=== PATIENT | female | born 1940 | race Caucasian/White ===

== ENCOUNTER 2016-07-26 17:59 | Observation (INO) ==
--- NOTE | 2016-07-26 19:25 | Emergency Department Note ---
IRa Emily, am scribing for, and in the presence of, Shante Serrano DO 19:23. IZach Debra, DO, personally performed the services described in this documentation, ascribed by Sofya Knapp in my presence, and it is both accurate and complete 925 . Arrival - Arrival Chief Complaint: Nausea/Vomiting/Diarrhea Stated Complaint: DIARRHEA Mode of Arrival: Stretcher Limitations: No Limitations Source: Patient - History of Present Illness HPI Narrative: Pt is a 75 y/o female who came to ED by EMS with c/o excessive diarrhea that started midnight this morning and continued throughout today. Pt reports having gross amounts of diarrhea and in ED having chills and mild abdomen pain. Pt states having two tumors, one in right abdominal wall and the other in the liver. She had a chemo tx on Thursday, July 23 and angio plasty on July 24. PSHx of multiple abdominal surgeries, in which cholecystectomy, partial hepatectomy, CA in a bowel duct which was removed and connected directly to intestines, but no hysterectomy. Onset (ago): day(s) Consistency: constant Severity: moderate Severity scale (1-10): 5 Quality: other Allergies/Adverse Reactions: Allergies Allergy/AdvReac Type Severity Reaction Status Date / Time aprepitant [From Emend] Allergy Intermediate RASH Verified 10/24/14 17:03 fosaprepitant [From Emend] Allergy Intermediate RASH Verified 10/24/14 17:03 Penicillins Allergy Intermediate RASH Verified 10/24/14 17:03 vancomycin Allergy Intermediate RASH Verified 10/24/14 17:03 Tamoxifen Allergy Verified 07/16/16 09:56 Home Medications: Home Medications Medication Instructions Recorded Confirmed Type Pantoprazole Tab [Protonix Tab] 1 tablet PO DAILY PRN 07/19/14 07/26/16 History Atenolol 25 mg PO DAILY 08/28/14 07/26/16 History Clorazepate [Tranxene] 3.75 mg PO BID PRN 07/24/16 07/26/16 History HYDROcodone/ACETAMIN 7.5-325 1 tablet PO Q4H 07/26/16 07/26/16 History [Roper 7.5-325] Loperamide Cap [Imodium Cap] 2 mg PO DAILY 07/26/16 07/26/16 History Promethazine Tab [Phenergan Tab] 25 mg PO Q4H 07/26/16 07/26/16 History Review of System - Review of System 12 point system: reviewed and no additional remarkable complaints except as stated - Review of System Constitutional: Present: chills (in waves). Absent: fever Respiratory: Absent: respiratory distress Cardiovascular: Absent: chest pain Gastrointestinal: Present: abdominal pain (mildly ), diarrhea (grossly ). Absent: nausea, vomiting, constipation Musculoskeletal: Absent: arm pain, back pain, leg pain, neck pain Skin: Absent: rash Neurological: Absent: headache Psychiatric: Absent: anxiety Medical,Surgical,& Family Hx - Medical History Cardio: History of: Hypertension Neurology: No history of: Seizures HEENT: History of: Eye Problem (Glasses), Dental Problems (Missing/Caps) Respiratory: No history of: Pneumonia (No Pneum Vac), Respiratory Problems (No Flu Vac 2015) Genitourinary: No history of: Recurring Urinary Tract Infections Gastrointestinal: History of: GERD, Liver Problems (resection of liver partial hepatomy), Gastrointestinal Cancer (Bile Duct Cancer-Chemo), GI Problems ([facility]; New Rt Lateral abdominal wall-Sched for Bx RAD-Questionable METS) Hematology: History of: Anemia No history of: Blood Transfusion Reaction Reproductive: History of: Breast Cancer (2004-Radiation) Other: History of: Cancer (Bile Duct Ca-Mets Liver) No history of: Anesthesia Reactions - Surgical History Thoracic Surgeries: Patient denies;: Organ Transplant HEENT Surgeries: Patient denies: Eye Surgery Abdominal Surgeries: Surgical HX of: Abdominal Surgery (bile duct cancer; Partial Colectomy), Cholecystectomy, EGD Reproductive Surgeries: Surgical HX of;: Breast Surgery (Lumpectomy Rt) - Family History Family History: Reports;: Family Cancer (Mother & Sister:Brain tumor; Brother (2 ): Prostate), Family Heart Disease (Father: Heart attack), Family Hypertension ( Mother, Aunt), Family Stroke (Aunt) - Social History Smoking Status: Never smoker Functional capacity: independent ambulation Exam Vital Signs: Vital Signs Temperature 96.9 F L 07/26/16 18:17 Pulse Rate 95 H 07/26/16 18:49 Respiratory Rate 18 07/26/16 18:49 Blood Pressure 164/104 07/26/16 18:49 O2 Sat by Pulse Oximetry 98 07/26/16 18:49 - General General appearance: alert, in no apparent distress - Head Head exam: Present: atraumatic, normocephalic - Eye Eye exam: Present: PERRL, EOMI - ENT ENT exam: Present: mucous membranes dry. Absent: mucous membranes moist - Neck Neck exam: Present: full ROM. Absent: tenderness - Chest Chest inspection: Present: symmetric chest wall rise. Absent: tenderness - Respiratory Respiratory exam: Present: normal lung sounds bilaterally. Absent: respiratory distress - Cardiovascular Cardiovascular exam: Present: regular rate, normal rhythm, normal heart sounds - Abdominal Exam Abdominal exam: Present: soft, normal bowel sounds. Absent: distention, tenderness, guarding, rebound - Extremities Exam Extremities exam: Present: full ROM. Absent: tenderness, pedal edema - Neurological Exam Neurological exam: Present: alert, oriented X3, CN II-XII intact. Absent: motor sensory deficit - Psychiatric Psychiatric exam: Present: normal affect, normal mood - Skin Skin exam: Present: warm, dry Course Course Narrative: spoke with Dr Kitchen who will admit patient to obs Results - Labs CBC & BMP: 07/26/16 19:17 07/26/16 19:17 Lab Results: I have reviewed the patients labs Labs: Laboratory Tests 07/26/16 07/26/16 19:17 19:17 WBC 3.8 L D Lymph # (Auto) 1.1 L [place] # (Auto) 0.1 L Glucose 128 H Alkaline Phosphatase 123 H Albumin/Globulin Ratio 1.0 L Disposition Clinical Impression: Drug-induced nausea and vomiting Case discussed with: patient, patient's family Disposition: Still a Patient Condition: Stable Time of Disposition: 20:38
[2016-07-26] MEDS ORDERED: ONDANSETRON 4 MG/2 ML VIAL IV STA (19:26)
[2016-07-26] MEDS ORDERED: SODIUM CHLORIDE 0.9% 1,000 ML IV STA (19:26)
[2016-07-26 19:41] LABS: Basophils % 0.5 % (0.0-0.8); Eosinophils # 0.1 10*3/uL (0.0-0.87); Eosinophils % 2.6 % (0.00-10.9); Hematocrit 41.9 VOL% (35.7-47.0); Hemoglobin 14.1 GM/DL (12.0-16.0); Immature Granulocytes % 0.8 %; Immature Granulocytes Absolute 0.03 #; Lymphocytes # 1.1 10*3/uL (1.4-4.0); Lymphocytes % 28.1 % (21.3-54.2); Mean Corpuscular HGB Conc 33.7 GM/DL (32-36); Mean Corpuscular Hemoglobin 30 PG (27-34); Mean Corpuscular Volume 87.7 FL (87-102); Mean Platelet Volume 10.2 FL (9.6-12.0); Monocytes # 0.1 10*3/uL (0.11-0.8); Monocytes % 1.8 % (1.7-12.7); Neutrophils # 2.5 10*3/uL (1.4-7.4); Neutrophils % 66.2 % (38.7-73.9); Platelet Count 156 T/CUMM (130-400); Red Blood Count 4.78 MC/CUMM (3.8-5.5); Red Cell Distribution Width 12.6 % (9.3-17.3); White Blood Count 3.8 T/CUMM (4-12)
[2016-07-26 19:52] LABS: Albumin 3.4 G/DL (3.4-5.0); Calcium 8.6 MG/DL (8.5-10.1); Osmolality,Calculated 282.4 MOS/KG (273-304); Potassium 4.1 MMOL/L (3.5-5.1); Total Protein 6.6 G/DL (6.4-8.3)
[2016-07-26] MEDS ORDERED: ONDANSETRON 4 MG/2 ML VIAL ONE (19:53)
[2016-07-26] MEDS ORDERED: diphenhydrAMINE CAP 25 MG CAPSULE PO PRN (20:40)
[2016-07-26] MEDS ORDERED: chlorproMAZINE INJ 50 MG in SODIUM CHLORIDE 0.9% 100 ML IV PRN (20:40)
[2016-07-26] MEDS ORDERED: TEMAZEPAM 7.5 MG CAPSULE PO PRN (20:40)
[2016-07-26] MEDS ORDERED: ACETAMINOPHEN 325 MG TABLET PO PRN (20:40)
[2016-07-26] MEDS ORDERED: LACTULOSE 20 GM/30 ML UDCUP PO PRN (20:40)
[2016-07-26] MEDS ORDERED: PROMETHAZINE INJ 25 MG in SODIUM CHLORIDE 0.9% 50 ML IV PRN (20:40)
[2016-07-26] MEDS ORDERED: LOPERAMIDE 2 MG CAPSULE PO PRN ×2 (20:40)
[2016-07-26] MEDS ORDERED: chlorproMAZINE INJ 25 MG in SODIUM CHLORIDE 0.9% 100 ML IV PRN (20:40)
[2016-07-26] MEDS ORDERED: MAGNESIUM HYDROXIDE SUSP 30 ML UDCUP PO PRN (20:40)
[2016-07-26] MEDS ORDERED: MYLANTA/LIDO VISC 2:1 300 ML BOTTLE SWISH/SPIT PRN (20:40)
[2016-07-26] MEDS ORDERED: chlorproMAZINE 25 MG TABLET PO PRN (20:40)
[2016-07-26] MEDS ORDERED: guaiFENesin 200 MG/10 ML UDCUP PO PRN (20:40)
[2016-07-26] MEDS ORDERED: BENZTROPINE 2 MG/2 ML AMP IV PRN (20:40)
[2016-07-26] MEDS ORDERED: ALPRAZolam 0.25 MG TABLET PO PRN (20:40)
[2016-07-26] MEDS ORDERED: ONDANSETRON 4 MG/2 ML VIAL IV PRN (20:40)
[2016-07-26] MEDS ORDERED: traMADol 50 MG TABLET PO PRN (20:40)
[2016-07-26] MEDS ORDERED: ALUMINUM/MAGNES/SIMETH MAX STR 30 ML UDCUP PO PRN (20:40)
[2016-07-26] MEDS ORDERED: MYLANTA/LIDO VISC 2:1 300 ML BOTTLE SWISH/SWAL PRN (20:40)
[2016-07-26 21:12] LABS: Apearance,Urine CLEAR (Clear); Bacteria,Urine Occasional /HPF (Few); Bilirubin,Urine Negative (Negative); Blood, Urine Negative (Negative); Glucose,Urine (UA) Negative (Negative); Ketones,Urine Negative (Negative); Nitrite,Urine Negative (Negative); Protein,Urine Negative; RBC,Urine <1 /HPF (0-4); Urine Color Straw (Yellow); Urine Specific Gravity 1.004 (1.001-1.035); Urine Urobilinogen < 2.0 EU/DL (0.2-1.0); WBC,Urine 2 /HPF (0-6)
[2016-07-26 21:17] LABS: Uric Acid 5.4 MG/DL (2.6-6.0)
[2016-07-26] MEDS: SODIUM CHLORIDE 0.9% 1,000 ML IV SCH (22:40)
[2016-07-27] MEDS: SODIUM CHLORIDE 0.9% 1,000 ML IV SCH ×3 (05:28→21:42)
--- NOTE | 2016-07-27 09:21 | Oncology History&Physical ---
Assessment and Plan - Time spent with patient Time spent with patient: Greater than 30 minutes (1) Diarrhea Status: Acute Assessment and plan: We will continue with IV fluids. We will tested for C. difficile. I anticipate that she will likely be ready for discharge tomorrow morning. I will go ahead and place her on p.o. Cipro for her gram-negative rods in her urine. 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 Arzate is a 75 year old female with what sounds like a history of a biliary tumor who underwent TACE this past week per her description and was admitted to the ER yesterday for dehydration and severe diarrhea. She had called me earlier today complaining of nausea and vomiting but had Phenergan suppositories at home and was going to try these. This morning she states she does not have any nausea and vomiting but still has loose stool. Her lab work does not show any significant abnormalities. Her urine was fairly clean on evaluation but her cultures are growing out gram-negative rods. She has not had any fevers. She appears to be doing fairly well this morning. Home Medications Medication Instructions Recorded Confirmed Type Pantoprazole Tab [Protonix Tab] 1 tablet PO DAILY PRN 07/19/14 07/26/16 History Atenolol 25 mg PO DAILY 08/28/14 07/26/16 History Clorazepate [Tranxene] 3.75 mg PO BID PRN 07/24/16 07/26/16 History HYDROcodone/ACETAMIN 7.5-325 1 tablet PO Q4H 07/26/16 07/26/16 History [Lorain 7.5-325] Loperamide Cap [Imodium Cap] 2 mg PO DAILY 07/26/16 07/26/16 History Promethazine Tab [Phenergan Tab] 25 mg PO Q4H 07/26/16 07/26/16 History Allergies Allergy/AdvReac Type Severity Reaction Status Date / Time aprepitant [From Emend] Allergy Intermediate RASH Verified 10/24/14 17:03 fosaprepitant [From Emend] Allergy Intermediate RASH Verified 10/24/14 17:03 Penicillins Allergy Intermediate RASH Verified 10/24/14 17:03 vancomycin Allergy Intermediate RASH Verified 10/24/14 17:03 Tamoxifen Allergy Verified 07/16/16 09:56 Medical,Surgical,& Family Hx - Medical History Cardio: History of: Hypertension Neurology: No history of: Seizures HEENT: History of: Eye Problem (Glasses), Dental Problems (Missing/Caps) Respiratory: No history of: Pneumonia (No Pneum Vac), Respiratory Problems (No Flu Vac 2015) Genitourinary: No history of: Recurring Urinary Tract Infections Gastrointestinal: History of: GERD, Liver Problems (resection of liver partial hepatomy), Gastrointestinal Cancer (Bile Duct Cancer-Chemo), GI Problems ([facility]; New Rt Lateral abdominal wall-Sched for Bx RAD-Questionable METS) Hematology: History of: Anemia No history of: Blood Transfusion Reaction Reproductive: History of: Breast Cancer (2004-Radiation) Other: History of: Cancer (Bile Duct Ca-Mets Liver) No history of: Anesthesia Reactions - Surgical History Thoracic Surgeries: Patient denies;: Organ Transplant HEENT Surgeries: Patient denies: Eye Surgery Abdominal Surgeries: Surgical HX of: Abdominal Surgery (bile duct cancer; Partial Colectomy), Cholecystectomy, EGD Reproductive Surgeries: Surgical HX of;: Breast Surgery (Lumpectomy Rt) - Family History Family History: Reports;: Family Cancer (Mother & Sister:Brain tumor; Brother (2 ): Prostate), Family Heart Disease (Father: Heart attack), Family Hypertension ( Mother, Aunt), Family Stroke (Aunt) - Social History Smoking Status: Never smoker Frequency of Alcohol Use: None Type of Drug Use: None 12 point system: reviewed and no additional remarkable complaints except as stated - Constitutional Constitutional: Present: fatigue. Absent: chills, fever(s) Exam - Constitutional Vitals: Period Temp Pulse Resp BP Sys/Lowry Pulse Ox Last 24 Hr 96.9 F-98.2 F 73-95 18-20 109-179/60-109 95-100 General appearance: normal weight, mild distress - Head Head Exam: Present: normocephalic, atraumatic - Eye Eye Exam: Present: EOMI Pupils: Present: PERRL - ENT ENT exam: Present: normal exam, normal oropharynx - Neck Neck exam: Absent: lymphadenopathy, thyromegaly - Respiratory Respiratory exam: Present: CTAB. Absent: wheezes - Cardiovascular Cardiovascular exam: Present: RRR. Absent: JVD, systolic murmur - GI/Abdominal GI/Abdominal exam: Present: soft. Absent: ascites, distended, mass - Neurological Exam Neurological exam: Present: alert, oriented X3 - Psychiatric Psychiatric exam: Present: normal affect, normal mood - Skin Skin exam: Present: warm, dry Results - Labs CBC & BMP: 07/26/16 19:17 07/26/16 19:17 Lab Results: I have reviewed the past 24 hour labs
[2016-07-27] MEDS: CIPROFLOXACIN 500 MG TABLET PO SCH ×2 (09:44→20:14)
[2016-07-28] MEDS: SODIUM CHLORIDE 0.9% 1,000 ML IV SCH (05:39)
[2016-07-28 06:09] LABS: Basophils % 1.6 % (0.0-0.8); Eosinophils # 0.1 10*3/uL (0.0-0.87); Eosinophils % 5.7 % (0.00-10.9); Hematocrit 33.2 VOL% (35.7-47.0); Hemoglobin 11.1 GM/DL (12.0-16.0); Immature Granulocytes Absolute 0.02 #; Lymphocytes # 1.1 10*3/uL (1.4-4.0); Lymphocytes % 54.9 % (21.3-54.2); Mean Corpuscular HGB Conc 33.4 GM/DL (32-36); Mean Corpuscular Hemoglobin 30 PG (27-34); Mean Corpuscular Volume 89.2 FL (87-102); Mean Platelet Volume 10.5 FL (9.6-12.0); Monocytes # 0.1 10*3/uL (0.11-0.8); Monocytes % 4.1 % (1.7-12.7); Neutrophils # 0.6 10*3/uL (1.4-7.4); Neutrophils % 32.7 % (38.7-73.9); Platelet Count 101 T/CUMM (130-400); Red Blood Count 3.72 MC/CUMM (3.8-5.5); Red Cell Distribution Width 12.4 % (9.3-17.3); White Blood Count 1.9 T/CUMM (4-12)
[2016-07-28 06:56] LABS: Band Neutrophils 2 % (0-10); Eosinophils 5 % (0-10); Giant Platelets Few; Hypochromasia Slight; Lymphocytes 61 % (20-55); Microcytosis Slight; Platelet Estimate Decreased; Segmented Neutrophils 30 % (50-85); Total Cells Counted 100
[2016-07-28 08:23] VITALS: BP 147/73
[2016-07-28] MEDS: CIPROFLOXACIN 500 MG TABLET PO SCH (08:49)
--- NOTE | 2016-07-28 08:52 | Oncology Progress Note ---
Oncology Subjective PN Interval history: Patient with recurrent cholangiocarcinoma with prior surgical resection [facility] believe to be around late 2014. She did have a positive margin. Over the last several weeks we have been following liver lesions as well as to mesenteric lesions. She recently agreed to begin chemotherapy and I have placed her on weekly paclitaxel. She has had 2 treatments. Also on 2 days prior to admission she underwent chemoembolization performed here in [place]. She was admitted primarily for diarrhea. This has abated and she appears nontoxic today. She is able for discharge home. Prescriptions provided include Brenton 7.5 #60 as needed pain. She is neutropenic and chemotherapy is discontinued for this week with next evaluation at my office on ThursdayAugust 06. Exam - Constitutional Vitals: Period Temp Pulse Resp BP Sys/Lowry Pulse Ox Last 24 Hr 97.3 F-98.7 F 74-107 17-20 137-163/63-82 95-97 Results - Labs CBC & BMP: 07/28/16 05:49 07/26/16 19:17
--- NOTE | 2016-07-28 09:29 | Event Note ---
Came by to see Mrs. Arzate as she was admitted over the weekend for intractable diarrhea. She was discharged Thursday morning following bland particle/coil embolization of the mesenteric tumors within the right upper quadrant (known biopsy-proven recurrent colon carcinoma). At the time of discharge, she had no complaints. The transarterial embolization procedure was performed , 07/24/2016. She does not complain of any significant right upper quadrant pain since discharge. Her abdomen is nontender on exam. She has no chest pain or shortness of breath today. Oncology notes that she is neutropenic and also that she has a UTI (possibly related to Cates catheter placement during procedure?), which they are treating. Plan is to see her back in approximately 6 weeks with a repeat CT of the abdomen liver mass protocol to assess for response to embolization with hopes of planned cryoablation of the mesenteric deposits.
== END 2016-07-28 10:22 | disposition home or self-care (01) ==
LOC: EDUNIT# → N.ED 17:59 → N.EDINP 17:59 → N.4E 21:26
PROVIDERS: ADMIT Specialist; ATTEND Specialist

== ENCOUNTER 2017-06-15 10:36 | Inpatient (IN) ==
[2017-06-15] MEDS ORDERED: DEXAMETHASONE 10 MG/1 ML VIAL IV SCH (11:30)
[2017-06-15] MEDS ORDERED: OXALIPLATIN IV ONE (11:30)
[2017-06-15] MEDS ORDERED: LEUCOVORIN INJ 700 MG in DEXTROSE 5% 250 ML IV ONE (11:30)
[2017-06-15] MEDS ORDERED: DEXTROSE 5% IV ONE (11:30)
[2017-06-15] MEDS ORDERED: PALONOSETRON 0.25 MG/5 ML VIAL IV SCH (11:30)
[2017-06-15] MEDS ORDERED: FLUOROURACIL IV ONE (11:30)
[2017-06-15] MEDS: FLUOROURACIL 2,000 MG in SODIUM CHLORIDE 0.9% 1,000 ML IV SCH (15:39)
[2017-06-15] MEDS ORDERED: PROCHLORPERAZINE 10 MG TABLET PO PRN (16:08)
[2017-06-15] MEDS: CLORAZEPATE 3.75 MG TABLET PO SCH (20:18)
[2017-06-15] MEDS: GABAPENTIN 400 MG CAPSULE PO SCH (20:18)
[2017-06-15] MEDS ORDERED: guaiFENesin 200 MG/10 ML UDCUP PO PRN (21:53)
[2017-06-15] MEDS ORDERED: MYLANTA/LIDO VISC 2:1 300 ML BOTTLE SWISH/SPIT PRN (21:53)
[2017-06-15] MEDS ORDERED: ALPRAZolam 0.25 MG TABLET PO PRN (21:53)
[2017-06-15] MEDS ORDERED: PROMETHAZINE INJ 25 MG in SODIUM CHLORIDE 0.9% 50 ML IV PRN (21:53)
[2017-06-15] MEDS ORDERED: BENZTROPINE 2 MG/2 ML AMP IV PRN (21:53)
[2017-06-15] MEDS ORDERED: traMADol 50 MG TABLET PO PRN (21:53)
[2017-06-15] MEDS ORDERED: chlorproMAZINE INJ 50 MG in SODIUM CHLORIDE 0.9% 100 ML IV PRN (21:53)
[2017-06-15] MEDS ORDERED: MYLANTA/LIDO VISC 2:1 300 ML BOTTLE SWISH/SWAL PRN (21:53)
[2017-06-15] MEDS ORDERED: ONDANSETRON 4 MG/2 ML VIAL IV PRN (21:53)
[2017-06-15] MEDS ORDERED: diphenhydrAMINE CAP 25 MG CAPSULE PO PRN (21:53)
[2017-06-15] MEDS ORDERED: ALUMINUM/MAGNES/SIMETH MAX STR 30 ML UDCUP PO PRN (21:53)
[2017-06-15] MEDS ORDERED: ACETAMINOPHEN 325 MG TABLET PO PRN (21:53)
[2017-06-15] MEDS ORDERED: chlorproMAZINE INJ 25 MG in SODIUM CHLORIDE 0.9% 100 ML IV PRN (21:53)
[2017-06-15] MEDS ORDERED: MAGNESIUM HYDROXIDE SUSP 30 ML UDCUP PO PRN (21:53)
[2017-06-15] MEDS ORDERED: LOPERAMIDE 2 MG CAPSULE PO PRN ×2 (21:53)
[2017-06-15] MEDS: TEMAZEPAM 7.5 MG CAPSULE PO PRN ×2 (22:16→23:49)
[2017-06-16] MEDS: GABAPENTIN 400 MG CAPSULE PO SCH ×3 (06:44→20:47)
[2017-06-16] MEDS: CLORAZEPATE 3.75 MG TABLET PO SCH ×2 (11:43→20:47)
[2017-06-16] MEDS: ATENOLOL 25 MG TABLET PO SCH (11:43)
[2017-06-16] MEDS: PANTOPRAZOLE 40 MG TABLET PO SCH (11:43)
[2017-06-16] MEDS: FLUOROURACIL 2,000 MG in SODIUM CHLORIDE 0.9% 1,000 ML IV SCH (20:57)
[2017-06-17] MEDS: CLORAZEPATE 3.75 MG TABLET PO SCH (08:03)
[2017-06-17] MEDS: GABAPENTIN 400 MG CAPSULE PO SCH (08:03)
[2017-06-17] MEDS: ATENOLOL 25 MG TABLET PO SCH (08:05)
[2017-06-17] MEDS: PANTOPRAZOLE 40 MG TABLET PO SCH (08:05)
[2017-06-17] MEDS: LACTULOSE 20 GM/30 ML UDCUP PO PRN ×2 (08:10→08:11)
[2017-06-17] MEDS ORDERED: HEPARIN LOCK FLUSH 500 UNIT/5 ML SYRINGE IV PRN (09:42)
[2017-06-17 11:06] VITALS: BP 141/81
== END 2017-06-17 14:30 | disposition home or self-care (01) | DRG 847 ==
LOC: N.4E 10:43
PROVIDERS: ADMIT Specialist; ATTEND Specialist

== ENCOUNTER 2017-12-11 15:24 | Inpatient (IN) ==
[2017-12-11] MEDS ORDERED: KETOROLAC 30 MG/1 ML VIAL IM STA (16:11)
[2017-12-11] MEDS ORDERED: KETOROLAC 60 MG/2 ML VIAL IM ONE (16:20)
[2017-12-11 16:54] LABS: Basophils # 0.1 10*3/uL (0.0-0.2); Basophils % 0.4 % (0.0-0.8); Eosinophils % 0.2 % (0.00-10.9); Hemoglobin 9.1 GM/DL (12.0-16.0); Immature Granulocytes % 1.2 %; Immature Granulocytes Absolute 0.15 #; Lymphocytes # 1.1 10*3/uL (1.4-4.0); Lymphocytes % 8.7 % (21.3-54.2); Mean Corpuscular HGB Conc 32.5 GM/DL (32-36); Mean Corpuscular Hemoglobin 27 PG (27-34); Mean Corpuscular Volume 83.1 FL (87-102); Mean Platelet Volume 8.6 FL (9.6-12.0); Monocytes # 1.2 10*3/uL (0.11-0.8); Monocytes % 9.2 % (1.7-12.7); Neutrophils # 10.3 10*3/uL (1.4-7.4); Neutrophils % 80.3 % (38.7-73.9); Platelet Count 383 T/CUMM (130-400); Red Blood Count 3.37 MC/CUMM (3.8-5.5); Red Cell Distribution Width 18.3 % (9.3-17.3); White Blood Count 12.8 T/CUMM (4-12)
[2017-12-11 17:19] LABS: Bilirubin,Total 0.6 MG/DL (0.2-1.0); Calcium 8.8 MG/DL (8.5-10.1); Osmolality,Calculated 266.4 MOS/KG (273-304); Potassium 4.5 MMOL/L (3.5-5.1); Total Protein 7.7 G/DL (6.4-8.3)
[2017-12-11] MEDS ORDERED: LACTULOSE 20 GM/30 ML UDCUP PO PRN (18:39)
[2017-12-11] MEDS ORDERED: DOCUSATE SODIUM 100 MG CAPSULE PO PRN (18:39)
[2017-12-11] MEDS ORDERED: ONDANSETRON 4 MG/2 ML VIAL IV PRN (18:39)
[2017-12-11] MEDS ORDERED: traZODone 50 MG TABLET PO PRN (18:39)
[2017-12-11] MEDS ORDERED: ACETAMINOPHEN 325 MG TABLET PO PRN (18:39)
[2017-12-11] MEDS ORDERED: LORazepam 1 MG TABLET PO PRN (21:24)
[2017-12-11] MEDS ORDERED: PROCHLORPERAZINE 10 MG TABLET PO PRN (21:24)
[2017-12-11] MEDS: CLORAZEPATE 3.75 MG TABLET PO SCH (21:55)
[2017-12-11] MEDS: MEROPENEM 1,000 MG in SODIUM CHLORIDE 0.9% 100 ML IV SCH (22:00)
[2017-12-11] MEDS: DEXTROSE 5% NACL 0.45% 1,000 ML IV SCH (22:00)
[2017-12-11] MEDS: FUROSEMIDE 20 MG/2 ML VIAL IV SCH (22:21)
[2017-12-11] MEDS: ENOXAPARIN 40 MG/0.4 ML SYRINGE SUBCUT SCH (22:21)
[2017-12-11] MEDS: GABAPENTIN 400 MG CAPSULE PO SCH (22:21)
[2017-12-11] MEDS: FLUCONAZOLE INJ 100 MG in IV BAG 1 EACH IV SCH (23:03)
[2017-12-12] MEDS: HYDROcod/ACETAMIN 7.5-325 MG/15 ML UDCUP PO PRN ×2 (02:59→16:45)
[2017-12-12 04:32] LABS: Basophils % 0.4 % (0.0-0.8); Eosinophils # 0.1 10*3/uL (0.0-0.87); Eosinophils % 0.5 % (0.00-10.9); Hematocrit 28.4 VOL% (35.7-47.0); Hemoglobin 8.7 GM/DL (12.0-16.0); Immature Granulocytes % 1.8 %; Immature Granulocytes Absolute 0.18 #; Lymphocytes # 1.2 10*3/uL (1.4-4.0); Lymphocytes % 11.7 % (21.3-54.2); Mean Corpuscular HGB Conc 30.6 GM/DL (32-36); Mean Corpuscular Hemoglobin 26 PG (27-34); Mean Corpuscular Volume 84.5 FL (87-102); Mean Platelet Volume 8.9 FL (9.6-12.0); Monocytes % 9.7 % (1.7-12.7); Neutrophils # 7.8 10*3/uL (1.4-7.4); Neutrophils % 75.9 % (38.7-73.9); Platelet Count 412 T/CUMM (130-400); Red Blood Count 3.36 MC/CUMM (3.8-5.5); Red Cell Distribution Width 18.4 % (9.3-17.3); White Blood Count 10.3 T/CUMM (4-12)
[2017-12-12 04:46] LABS: Calcium 8.7 MG/DL (8.5-10.1); Osmolality,Calculated 271.1 MOS/KG (273-304); Potassium 4.3 MMOL/L (3.5-5.1)
[2017-12-12 04:59] LABS: Folate 20.8 NG/ML (5.4-24.0); Vitamin B12 > 2000 PG/ML (211-911)
[2017-12-12 05:00] LABS: % Iron Saturation 11.9 % (18-50); Ferritin 428.6 ng/ml (8-252)
[2017-12-12 05:40] LABS: Sedimentation Rate-Westergren 107 MM/HR (0-30)
[2017-12-12] MEDS ORDERED: ALUM/MAG/SIMETH/LIDO VISC 1:1 30 ML BOTTLE PO PRN (09:00)
[2017-12-12] MEDS: PANTOPRAZOLE 40 MG TABLET PO SCH (09:58)
[2017-12-12] MEDS: FUROSEMIDE 20 MG/2 ML VIAL IV SCH ×2 (09:58→20:56)
[2017-12-12] MEDS: CETIRIZINE 10 MG TABLET PO SCH (09:58)
[2017-12-12] MEDS: ATENOLOL 25 MG TABLET PO SCH (09:58)
[2017-12-12] MEDS: CLORAZEPATE 3.75 MG TABLET PO SCH ×2 (09:58→20:28)
[2017-12-12] MEDS: GABAPENTIN 400 MG CAPSULE PO SCH ×2 (09:58→20:56)
[2017-12-12] MEDS: MEROPENEM 1,000 MG in SODIUM CHLORIDE 0.9% 100 ML IV SCH ×2 (09:58→20:56)
[2017-12-12] MEDS: DEXTROSE 5% NACL 0.45% 1,000 ML IV SCH (15:00)
[2017-12-12] MEDS ORDERED: fentaNYL 12 MCG/HR PATCH TRANSDERM SCH (17:00)
[2017-12-12 17:55] LABS: Apearance,Urine CLEAR (Clear); Bilirubin,Urine Negative (Negative); Blood, Urine Negative (Negative); Glucose,Urine (UA) Negative (Negative); Hyaline Casts,Urine 5 /LPF (0-3); Ketones,Urine Negative (Negative); Mucus,Urine Occasional /LPF (Occasional); Nitrite,Urine Negative (Negative); Protein,Urine Negative; Urine Color Yellow (Yellow); Urine Specific Gravity 1.009 (1.001-1.035); Urine Urobilinogen < 2.0 EU/DL (0.2-1.0); WBC,Urine 1 /HPF (0-6)
[2017-12-12] MEDS: ALBUTEROL/IPRATROPIUM 3 ML NEB RESP TX SCH (19:35)
[2017-12-12] MEDS: FERROUS SULFATE 325 MG TABLET PO SCH (20:56)
[2017-12-12] MEDS: ENOXAPARIN 40 MG/0.4 ML SYRINGE SUBCUT SCH (20:56)
[2017-12-12] MEDS: FLUCONAZOLE INJ 100 MG in IV BAG 1 EACH IV SCH (23:02)
[2017-12-13] MEDS: ALBUTEROL/IPRATROPIUM 3 ML NEB RESP TX SCH ×3 (02:29→14:19)
[2017-12-13] MEDS ORDERED: LEVOFLOXACIN INJ 500 MG in PREMIX 1 EACH IV ONE (09:15)
[2017-12-13] MEDS ORDERED: DEXAMETHASONE 4 MG/1 ML VIAL IM ONE (09:16)
[2017-12-13] MEDS ORDERED: methylPREDNISolone ACETATE 40 MG/1 ML VIAL IM ONE (09:16)
[2017-12-13] MEDS: PHENOL 1.4% THROAT SPRAY 177 ML BOTTLE PO PRN ×2 (09:20→12:21)
[2017-12-13] MEDS: GABAPENTIN 400 MG CAPSULE PO SCH (09:22)
[2017-12-13] MEDS: FERROUS SULFATE 325 MG TABLET PO SCH (09:23)
[2017-12-13] MEDS: CLORAZEPATE 3.75 MG TABLET PO SCH (09:23)
[2017-12-13] MEDS: PANTOPRAZOLE 40 MG TABLET PO SCH (09:23)
[2017-12-13] MEDS: CETIRIZINE 10 MG TABLET PO SCH (09:24)
[2017-12-13] MEDS: MEROPENEM 1,000 MG in SODIUM CHLORIDE 0.9% 100 ML IV SCH (09:28)
[2017-12-13 12:20] VITALS: BP 127/68
[2017-12-13] MEDS: FUROSEMIDE 20 MG/2 ML VIAL IV SCH (14:12)
[2017-12-13] MEDS: ATENOLOL 25 MG TABLET PO SCH (14:21)
[2017-12-14 08:59] LABS: Hemoglobin A1 (Alkaline) 97.3 % (96.5-98.5); Hemoglobin A2 (Alkaline) 2.7 % (1.5-3.5)
== END 2017-12-13 15:13 | disposition home health service (06) | DRG 152 ==
LOC: N.ED 15:24 → N.EDINP 18:39 → N.5E 21:21
PROVIDERS: ADMIT Hospitalist; ATTEND Hospitalist

== ENCOUNTER 2017-12-16 22:42 | Inpatient (IN) ==
[2017-12-16] MEDS ORDERED: SODIUM CHLORIDE 0.9% 1,000 ML IV STA (23:41)
[2017-12-16] MEDS ORDERED: ONDANSETRON 4 MG/2 ML VIAL IV STA (23:41)
[2017-12-16] MEDS ORDERED: MORPHINE 4 MG/1 ML VIAL IV STA (23:41)
[2017-12-17] MEDS ORDERED: ERTAPENEM 1,000 MG in SODIUM CHLORIDE 0.9% 100 ML IV SCH (01:00)
[2017-12-17 01:08] LABS: Calcium 8.5 MG/DL (8.5-10.1); Osmolality,Calculated 269.4 MOS/KG (273-304); Potassium 3.3 MMOL/L (3.5-5.1); Total Protein 7.8 G/DL (6.4-8.3)
[2017-12-17 01:08] LABS: Lactic Acid 1.8 MMOL/L (0.4-2.0)
[2017-12-17 01:12] LABS: Basophils % 0.2 % (0.0-0.8); Eosinophils % 0.1 % (0.00-10.9); Hematocrit 33.1 VOL% (35.7-47.0); Hemoglobin 10.3 GM/DL (12.0-16.0); Immature Granulocytes % 4.2 %; Immature Granulocytes Absolute 0.74 #; Lymphocytes # 1.2 10*3/uL (1.4-4.0); Lymphocytes % 6.6 % (21.3-54.2); Mean Corpuscular HGB Conc 31.1 GM/DL (32-36); Mean Corpuscular Hemoglobin 26 PG (27-34); Mean Corpuscular Volume 82.1 FL (87-102); Mean Platelet Volume 8.9 FL (9.6-12.0); Monocytes # 1.2 10*3/uL (0.11-0.8); Monocytes % 6.5 % (1.7-12.7); Neutrophils # 14.6 10*3/uL (1.4-7.4); Neutrophils % 82.4 % (38.7-73.9); Platelet Count 446 T/CUMM (130-400); Red Blood Count 4.03 MC/CUMM (3.8-5.5); Red Cell Distribution Width 17.7 % (9.3-17.3); White Blood Count 17.7 T/CUMM (4-12)
[2017-12-17] MEDS ORDERED: MORPHINE 4 MG/1 ML VIAL IV STA (05:11)
[2017-12-17] MEDS ORDERED: LIDOCAINE 2% VISCOUS 100 ML BOTTLE SWISH/SPIT PRN (05:56)
[2017-12-17] MEDS ORDERED: SODIUM CHLORIDE 0.9% 1,000 ML IV SCH (05:56)
[2017-12-17] MEDS ORDERED: PROMETHAZINE 25 MG/1 ML VIAL IM PRN (05:56)
[2017-12-17] MEDS ORDERED: ACETAMINOPHEN 325 MG TABLET PO PRN (05:56)
[2017-12-17] MEDS ORDERED: CLORAZEPATE 3.75 MG TABLET PO PRN (05:56)
[2017-12-17] MEDS ORDERED: POTASSIUM CHLORIDE 20 MEQ TABLET PO PRN (06:00)
[2017-12-17] MEDS: ALBUTEROL/IPRATROPIUM 3 ML NEB RESP TX SCH ×3 (06:58→19:45)
[2017-12-17 07:19] LABS: Hypochromasia 1+; Lymphocytes 2 % (20-55); Metamyelocytes 1 %; Myelocytes 1 %; Segmented Neutrophils 90 % (50-85); Total Cells Counted 100
[2017-12-17 07:20] LABS: Microcytosis 1+; Ovalocytes Slight; Platelet Estimate Increased
[2017-12-17] MEDS ORDERED: CEFOTAXIME 2,000 MG in SODIUM CHLORIDE 0.9% 100 ML IV SCH (08:00)
[2017-12-17 08:33] LABS: INR 1.1; PT Patient Result 11.9 SECS
[2017-12-17] MEDS ORDERED: POTASSIUM CHLORIDE RIDER 10 MEQ in PREMIX 1 EACH IV PRN (08:59)
[2017-12-17] MEDS ORDERED: PANTOPRAZOLE 40 MG TABLET PO SCH (09:00)
[2017-12-17] MEDS ORDERED: fentaNYL 12 MCG/HR PATCH TRANSDERM SCH (09:00)
[2017-12-17] MEDS: POTASSIUM CHLORIDE RIDER 10 MEQ in PREMIX 1 EACH IV PRN ×3 (10:32→18:17)
[2017-12-17] MEDS: MORPHINE 4 MG/1 ML VIAL IV PRN ×2 (10:36→16:25)
[2017-12-17 13:25] LABS: Total Protein,Peritoneal Fluid 3.5 G/DL
[2017-12-17] MEDS: FUROSEMIDE 20 MG TABLET PO SCH ×2 (13:30→16:19)
[2017-12-17] MEDS: fentaNYL 50 MCG/HR PATCH TRANSDERM SCH (13:39)
[2017-12-17] MEDS: POTASSIUM CHLORIDE 20 MEQ TABLET PO SCH (13:40)
[2017-12-17] MEDS: GABAPENTIN 400 MG CAPSULE PO SCH ×2 (13:42→20:23)
[2017-12-17] MEDS: FERROUS SULFATE 325 MG TABLET PO SCH ×2 (13:45→20:23)
[2017-12-17] MEDS: MEROPENEM 1,000 MG in SODIUM CHLORIDE 0.9% 100 ML IV SCH ×2 (13:45→21:19)
[2017-12-17] MEDS: CETIRIZINE 10 MG TABLET PO SCH (13:45)
[2017-12-17] MEDS: ATENOLOL 25 MG TABLET PO SCH (13:45)
[2017-12-17 14:01] LABS: Apearance,Urine Slightly Hazy (Clear); Bacteria,Urine Few /HPF (Few); Bilirubin,Urine Negative (Negative); Blood, Urine Small mg/dL (Negative); Calcium Oxalate Crystals,Urine Occasional /HPF (Few); Glucose,Urine (UA) Negative (Negative); Ketones,Urine Negative (Negative); Mucus,Urine Occasional /LPF (Occasional); Nitrite,Urine Negative (Negative); Protein,Urine 30 MG/DL; RBC,Urine 1 /HPF (0-4); Urine Color Amber (Yellow); Urine Specific Gravity 1.018 (1.001-1.035); WBC,Urine 8 /HPF (0-6)
[2017-12-17 15:00] LABS: Neutrophils,Peritoneal Fluid 22 %
[2017-12-17 15:01] LABS: RBC,Peritoneal Fluid 7251 T/CUMM
[2017-12-17] MEDS: PANTOPRAZOLE 40 MG VIAL IV SCH (20:20)
[2017-12-17] MEDS: ONDANSETRON 4 MG/2 ML VIAL IV PRN (20:30)
[2017-12-18] MEDS ORDERED: ALUMINUM/MAGNES/SIMETH MAX STR 30 ML UDCUP PO ONE (00:32)
[2017-12-18] MEDS: MORPHINE 4 MG/1 ML VIAL IV PRN ×4 (04:12→21:36)
[2017-12-18 05:47] LABS: Basophils # 0.1 10*3/uL (0.0-0.2); Basophils % 0.2 % (0.0-0.8); Eosinophils # 0.1 10*3/uL (0.0-0.87); Eosinophils % 0.4 % (0.00-10.9); Hematocrit 29.5 VOL% (35.7-47.0); Hemoglobin 9.3 GM/DL (12.0-16.0); Immature Granulocytes % 1.6 %; Immature Granulocytes Absolute 0.43 #; Lymphocytes # 1.2 10*3/uL (1.4-4.0); Lymphocytes % 4.5 % (21.3-54.2); Mean Corpuscular HGB Conc 31.5 GM/DL (32-36); Mean Corpuscular Hemoglobin 26 PG (27-34); Mean Corpuscular Volume 83.1 FL (87-102); Mean Platelet Volume 9.2 FL (9.6-12.0); Monocytes # 1.5 10*3/uL (0.11-0.8); Monocytes % 5.6 % (1.7-12.7); Neutrophils % 87.7 % (38.7-73.9); Platelet Count 308 T/CUMM (130-400); Red Blood Count 3.55 MC/CUMM (3.8-5.5); Red Cell Distribution Width 18.1 % (9.3-17.3); White Blood Count 26.2 T/CUMM (4-12)
[2017-12-18 06:07] LABS: Calcium 7.5 MG/DL (8.5-10.1); Osmolality,Calculated 266.4 MOS/KG (273-304); Potassium 4.3 MMOL/L (3.5-5.1)
[2017-12-18 06:52] LABS: Band Neutrophils 1 % (0-10); Hypersegmented Neutrophil Few; Hypochromasia Slight; Lymphocytes 4 % (20-55); Platelet Estimate Normal; Segmented Neutrophils 90 % (50-85); Total Cells Counted 100
[2017-12-18] MEDS: ALBUTEROL/IPRATROPIUM 3 ML NEB RESP TX SCH ×3 (07:45→19:07)
[2017-12-18] MEDS ORDERED: fentaNYL 100 MCG/2 ML VIAL IV ONE (08:27)
[2017-12-18] MEDS ORDERED: fentaNYL 100 MCG/2 ML VIAL ONE (08:33)
[2017-12-18] MEDS ORDERED: PROPOFOL 200 MG/20 ML VIAL IV ONE (09:00)
[2017-12-18] MEDS ORDERED: LIDOCAINE 100 MG/5 ML SYRINGE ONE (09:00)
[2017-12-18] MEDS: FUROSEMIDE 20 MG TABLET PO SCH ×2 (09:49→16:56)
[2017-12-18] MEDS: MEROPENEM 1,000 MG in SODIUM CHLORIDE 0.9% 100 ML IV SCH ×2 (09:49→21:35)
[2017-12-18] MEDS: GABAPENTIN 400 MG CAPSULE PO SCH ×2 (09:49→15:40)
[2017-12-18] MEDS: ATENOLOL 25 MG TABLET PO SCH (09:49)
[2017-12-18] MEDS: PANTOPRAZOLE 40 MG VIAL IV SCH ×2 (09:49→21:37)
[2017-12-18] MEDS: CETIRIZINE 10 MG TABLET PO SCH (09:49)
[2017-12-18] MEDS: fentaNYL 50 MCG/HR PATCH TRANSDERM SCH (10:06)
[2017-12-18] MEDS: FERROUS SULFATE 325 MG TABLET PO SCH (10:07)
[2017-12-18] MEDS: POTASSIUM CHLORIDE 20 MEQ TABLET PO SCH (10:07)
[2017-12-18] MEDS: FLUCONAZOLE INJ 100 MG in IV BAG 1 EACH IV SCH (12:24)
[2017-12-18] MEDS: METOCLOPRAMIDE 10 MG/2 ML VIAL IV PRN ×2 (12:24→18:35)
[2017-12-18] MEDS: SODIUM CHLORIDE 0.9% 1,000 ML IV SCH (12:25)
[2017-12-18] MEDS: ONDANSETRON 4 MG/2 ML VIAL IV PRN ×2 (17:03→21:36)
[2017-12-19] MEDS: MORPHINE 4 MG/1 ML VIAL IV PRN ×4 (01:58→20:54)
[2017-12-19] MEDS: GABAPENTIN 400 MG CAPSULE PO SCH ×3 (03:00→15:23)
[2017-12-19] MEDS: METOCLOPRAMIDE 10 MG/2 ML VIAL IV PRN ×3 (06:45→18:21)
[2017-12-19] MEDS: ALBUTEROL/IPRATROPIUM 3 ML NEB RESP TX SCH ×3 (07:33→19:45)
[2017-12-19] MEDS: ATENOLOL 25 MG TABLET PO SCH (08:27)
[2017-12-19] MEDS: FUROSEMIDE 20 MG TABLET PO SCH ×2 (08:27→15:23)
[2017-12-19] MEDS: PANTOPRAZOLE 40 MG VIAL IV SCH ×2 (08:28→21:30)
[2017-12-19] MEDS: FLUCONAZOLE INJ 100 MG in IV BAG 1 EACH IV SCH (08:42)
[2017-12-19] MEDS: POTASSIUM CHLORIDE 20 MEQ TABLET PO SCH (10:01)
[2017-12-19] MEDS: MEROPENEM 1,000 MG in SODIUM CHLORIDE 0.9% 100 ML IV SCH ×2 (10:08→20:53)
[2017-12-19 10:24] LABS: Basophils # 0.1 10*3/uL (0.0-0.2); Basophils % 0.4 % (0.0-0.8); Eosinophils # 0.2 10*3/uL (0.0-0.87); Eosinophils % 0.7 % (0.00-10.9); Hematocrit 31.1 VOL% (35.7-47.0); Hemoglobin 9.4 GM/DL (12.0-16.0); Immature Granulocytes % 3.6 %; Immature Granulocytes Absolute 0.99 #; Lymphocytes # 1.2 10*3/uL (1.4-4.0); Lymphocytes % 4.5 % (21.3-54.2); Mean Corpuscular HGB Conc 30.2 GM/DL (32-36); Mean Corpuscular Hemoglobin 26 PG (27-34); Mean Platelet Volume 9.2 FL (9.6-12.0); Monocytes # 1.9 10*3/uL (0.11-0.8); Monocytes % 6.9 % (1.7-12.7); Neutrophils # 22.9 10*3/uL (1.4-7.4); Neutrophils % 83.9 % (38.7-73.9); Platelet Count 326 T/CUMM (130-400); Red Blood Count 3.66 MC/CUMM (3.8-5.5); Red Cell Distribution Width 18.7 % (9.3-17.3); White Blood Count 27.3 T/CUMM (4-12)
[2017-12-19 10:44] LABS: Anisocytosis 1+; Band Neutrophils 5 % (0-10); Lymphocytes 1 % (20-55); Macrocytosis Slight; Platelet Estimate Normal; Polychromasia Slight; Segmented Neutrophils 90 % (50-85); Total Cells Counted 100
[2017-12-19] MEDS: SODIUM CHLORIDE 0.9% 1,000 ML IV SCH (15:50)
[2017-12-19] MEDS: ONDANSETRON 4 MG/2 ML VIAL IV PRN (20:55)
[2017-12-20] MEDS: GABAPENTIN 400 MG CAPSULE PO SCH ×4 (01:22→21:02)
[2017-12-20] MEDS: MORPHINE 4 MG/1 ML VIAL IV PRN ×3 (01:40→21:03)
[2017-12-20 06:07] LABS: Basophils # 0.1 10*3/uL (0.0-0.2); Basophils % 0.5 % (0.0-0.8); Eosinophils # 0.4 10*3/uL (0.0-0.87); Eosinophils % 1.8 % (0.00-10.9); Hematocrit 28.3 VOL% (35.7-47.0); Hemoglobin 8.9 GM/DL (12.0-16.0); Immature Granulocytes % 4.8 %; Lymphocytes # 1.3 10*3/uL (1.4-4.0); Mean Corpuscular HGB Conc 31.4 GM/DL (32-36); Mean Corpuscular Hemoglobin 27 PG (27-34); Mean Corpuscular Volume 84.5 FL (87-102); Mean Platelet Volume 9.4 FL (9.6-12.0); Monocytes # 1.9 10*3/uL (0.11-0.8); Monocytes % 9.2 % (1.7-12.7); Neutrophils # 16.1 10*3/uL (1.4-7.4); Neutrophils % 77.7 % (38.7-73.9); Platelet Count 251 T/CUMM (130-400); Red Blood Count 3.35 MC/CUMM (3.8-5.5); Red Cell Distribution Width 18.8 % (9.3-17.3); White Blood Count 20.8 T/CUMM (4-12)
[2017-12-20 06:32] LABS: Anisocytosis Slight; Band Neutrophils 2 % (0-10); Eosinophils 3 % (0-10); Lymphocytes 4 % (20-55); Platelet Estimate Normal; Segmented Neutrophils 84 % (50-85); Total Cells Counted 100
[2017-12-20] MEDS: ALBUTEROL/IPRATROPIUM 3 ML NEB RESP TX SCH ×3 (06:49→19:09)
[2017-12-20] MEDS: FUROSEMIDE 20 MG TABLET PO SCH ×2 (08:03→15:21)
[2017-12-20] MEDS: POTASSIUM CHLORIDE 20 MEQ TABLET PO SCH (08:14)
[2017-12-20] MEDS: ATENOLOL 25 MG TABLET PO SCH (08:14)
[2017-12-20] MEDS: PANTOPRAZOLE 40 MG VIAL IV SCH ×2 (08:15→21:04)
[2017-12-20] MEDS: FLUCONAZOLE INJ 100 MG in IV BAG 1 EACH IV SCH (08:17)
[2017-12-20] MEDS: METOCLOPRAMIDE 10 MG/2 ML VIAL IV PRN (08:28)
[2017-12-20] MEDS: MEROPENEM 1,000 MG in SODIUM CHLORIDE 0.9% 100 ML IV SCH ×2 (10:09→21:00)
[2017-12-20] MEDS: AZITHROMYCIN INJ 500 MG in SODIUM CHLORIDE 0.9% 250 ML IV SCH (11:24)
[2017-12-20] MEDS: SODIUM CHLORIDE 0.9% 1,000 ML IV SCH (17:53)
[2017-12-20] MEDS: ONDANSETRON 4 MG/2 ML VIAL IV PRN (21:03)
[2017-12-21 04:33] LABS: Basophils # 0.1 10*3/uL (0.0-0.2); Basophils % 0.5 % (0.0-0.8); Eosinophils # 0.3 10*3/uL (0.0-0.87); Eosinophils % 1.9 % (0.00-10.9); Hemoglobin 7.6 GM/DL (12.0-16.0); Immature Granulocytes % 6.2 %; Immature Granulocytes Absolute 1.02 #; Lymphocytes # 1.2 10*3/uL (1.4-4.0); Lymphocytes % 7.6 % (21.3-54.2); Mean Corpuscular HGB Conc 30.4 GM/DL (32-36); Mean Corpuscular Hemoglobin 26 PG (27-34); Mean Corpuscular Volume 84.5 FL (87-102); Mean Platelet Volume 9.6 FL (9.6-12.0); Monocytes # 1.7 10*3/uL (0.11-0.8); Monocytes % 10.1 % (1.7-12.7); Neutrophils # 12.1 10*3/uL (1.4-7.4); Neutrophils % 73.7 % (38.7-73.9); Platelet Count 216 T/CUMM (130-400); Red Blood Count 2.96 MC/CUMM (3.8-5.5); Red Cell Distribution Width 18.8 % (9.3-17.3); White Blood Count 16.4 T/CUMM (4-12)
[2017-12-21 05:05] LABS: Band Neutrophils 1 % (0-10); Eosinophils 4 % (0-10); Lymphocytes 4 % (20-55); Platelet Estimate Adequate; Segmented Neutrophils 85 % (50-85); Total Cells Counted 100
[2017-12-21 05:06] LABS: Hypochromasia 1+
[2017-12-21] MEDS: ALBUTEROL/IPRATROPIUM 3 ML NEB RESP TX SCH ×3 (07:24→19:14)
[2017-12-21] MEDS: METOCLOPRAMIDE 10 MG/2 ML VIAL IV PRN (08:17)
[2017-12-21] MEDS ORDERED: fentaNYL 50 MCG/HR PATCH TRANSDERM SCH (09:00)
[2017-12-21] MEDS: POTASSIUM CHLORIDE 20 MEQ TABLET PO SCH (09:20)
[2017-12-21] MEDS: FUROSEMIDE 20 MG TABLET PO SCH ×2 (09:20→17:11)
[2017-12-21] MEDS: GABAPENTIN 400 MG CAPSULE PO SCH ×3 (09:20→21:47)
[2017-12-21] MEDS: ATENOLOL 25 MG TABLET PO SCH (09:20)
[2017-12-21] MEDS: PANTOPRAZOLE 40 MG VIAL IV SCH ×2 (09:23→21:48)
[2017-12-21] MEDS: FLUCONAZOLE INJ 100 MG in IV BAG 1 EACH IV SCH (09:31)
[2017-12-21] MEDS ORDERED: SODIUM CHLORIDE 0.9% 1,000 ML IV PRN (10:27)
[2017-12-21] MEDS ORDERED: FUROSEMIDE 20 MG/2 ML VIAL IV PRN (10:27)
[2017-12-21] MEDS ORDERED: diphenhydrAMINE 50 MG/1 ML VIAL IV PRN (10:27)
[2017-12-21] MEDS: AZITHROMYCIN INJ 500 MG in SODIUM CHLORIDE 0.9% 250 ML IV SCH (11:55)
[2017-12-21] MEDS: MORPHINE 4 MG/1 ML VIAL IV PRN (12:08)
[2017-12-21] MEDS ORDERED: diphenhydrAMINE CAP 25 MG CAPSULE ONE (16:30)
[2017-12-21] MEDS ORDERED: ALBUMIN 25% 50 GM in PREMIX 1 EACH IV ONE (16:30)
[2017-12-21] MEDS ORDERED: diphenhydrAMINE CAP 25 MG CAPSULE PO PRN (17:18)
[2017-12-21] MEDS ORDERED: diphenhydrAMINE CAP 25 MG CAPSULE PO SCH (18:00)
[2017-12-21] MEDS: METOCLOPRAMIDE 10 MG/10 ML UDCUP PO SCH (21:47)
[2017-12-21] MEDS: FUROSEMIDE 20 MG/2 ML VIAL IV PRN (21:57)
[2017-12-22] MEDS: FUROSEMIDE 20 MG/2 ML VIAL IV PRN (04:36)
[2017-12-22 05:01] LABS: Basophils # 0.2 10*3/uL (0.0-0.2); Basophils % 0.9 % (0.0-0.8); Eosinophils # 0.2 10*3/uL (0.0-0.87); Eosinophils % 1.3 % (0.00-10.9); Hemoglobin 10.3 GM/DL (12.0-16.0); Immature Granulocytes % 6.8 %; Immature Granulocytes Absolute 1.17 #; Lymphocytes # 1.6 10*3/uL (1.4-4.0); Lymphocytes % 9.5 % (21.3-54.2); Mean Corpuscular HGB Conc 32.2 GM/DL (32-36); Mean Corpuscular Hemoglobin 27 PG (27-34); Mean Platelet Volume 9.4 FL (9.6-12.0); Monocytes % 11.4 % (1.7-12.7); Neutrophils % 70.1 % (38.7-73.9); Platelet Count 171 T/CUMM (130-400); Red Blood Count 3.81 MC/CUMM (3.8-5.5); Red Cell Distribution Width 17.2 % (9.3-17.3); White Blood Count 17.2 T/CUMM (4-12)
[2017-12-22 05:28] LABS: Albumin 1.5 G/DL (3.4-5.0); Bilirubin,Total 0.9 MG/DL (0.2-1.0); Calcium 6.9 MG/DL (8.5-10.1); Osmolality,Calculated 272.1 MOS/KG (273-304); Total Protein 5.9 G/DL (6.4-8.3)
[2017-12-22 05:29] LABS: Anisocytosis 1+; Eosinophils 1 % (0-10); Hypochromasia 1+; Lymphocytes 8 % (20-55); Microcytosis 1+; Polychromasia Slight; Segmented Neutrophils 83 % (50-85); Total Cells Counted 100
[2017-12-22] MEDS: METOCLOPRAMIDE 10 MG/10 ML UDCUP PO SCH ×2 (06:35→12:11)
[2017-12-22] MEDS: ALBUTEROL/IPRATROPIUM 3 ML NEB RESP TX SCH ×2 (07:30→13:00)
[2017-12-22] MEDS: GABAPENTIN 400 MG CAPSULE PO SCH ×2 (10:02→15:51)
[2017-12-22] MEDS: ATENOLOL 25 MG TABLET PO SCH (10:02)
[2017-12-22] MEDS: POTASSIUM CHLORIDE 20 MEQ TABLET PO SCH (10:05)
[2017-12-22] MEDS: PANTOPRAZOLE 40 MG VIAL IV SCH (10:06)
[2017-12-22] MEDS: FUROSEMIDE 20 MG TABLET PO SCH (10:06)
[2017-12-22] MEDS: FLUCONAZOLE INJ 100 MG in IV BAG 1 EACH IV SCH (10:15)
[2017-12-22] MEDS: POTASSIUM CHLORIDE RIDER 10 MEQ in PREMIX 1 EACH IV PRN (12:16)
[2017-12-22] MEDS: POTASSIUM CHLORIDE RIDER 20 MEQ in PREMIX 1 EACH IV PRN ×2 (13:45→15:45)
[2017-12-22 17:27] VITALS: BP 104/53
== END 2017-12-22 17:55 | disposition home health service (06) | DRG 391 ==
LOC: N.ED 22:42 → SUATTDRO 12-17 05:04 → N.EDINP 12-17 05:04 → N.3E 12-17 05:26
PROVIDERS: ADMIT Hospitalist; ATTEND Internal Medicine